=== PATIENT | female | born 1950 | race Two or more races ===

== ENCOUNTER 2022-05-14 10:45 | Inpatient (IN) | payer OTHER ==
[~2022-05-14] VITALS: Ht 160 cm; Wt 70.3 kg
[2022-05-14] MEDS ORDERED: ELIQUIS5 MG PO (14:10)
[2022-05-14] MEDS ORDERED: AMLODIP PO (14:10)
[2022-05-14] MEDS ORDERED: TOPROL XL50 M1 PO (14:11)
[2022-05-14] MEDS ORDERED: GLUMETZA500 MG PO (14:11)
[2022-05-14] MEDS ORDERED: ATORVASTATIN CA10 MG PO (14:11)
[2022-05-17] MEDS ORDERED: KETOTIFEN FUMARA5 ML (09:32)
[2022-05-17] MEDS ORDERED: AMLODIPINE BESYL5 MG (09:32)
[2022-05-17] MEDS ORDERED: PRESERVISION A1 EAC1 (09:33)
[2022-05-17] MEDS ORDERED: IRBESARTAN150 MG (09:34)
== END 2022-05-21 14:43 | disposition home or self-care (01) | DRG 331 ==
LOC: O/R 05-17 06:38 → SURH 05-17 10:45
PROVIDERS: ADMIT Colon & Rectal Surgery; ATTEND Colon & Rectal Surgery
PROC: 0DBP4ZZ Excision of Rectum, Percutaneous Endoscopic Approach (ICD-10-PCS; 2022-05-17)
PROC: 0DJD8ZZ Inspection of Lower Intestinal Tract, Via Natural or Artificial Opening Endoscopic (ICD-10-PCS; 2022-05-17)
PROC: 4A1BXSH Monitoring of Gastrointestinal Vascular Perfusion using Indocyanine Green Dye, External Approach (ICD-10-PCS; 2022-05-17)
PROC: 3E0F7SF Introduction of Other Gas into Respiratory Tract, Via Natural or Artificial Opening (ICD-10-PCS; 2022-05-17)
PROC: 0DTN4ZZ Resection of Sigmoid Colon, Percutaneous Endoscopic Approach (ICD-10-PCS; principal; 2022-05-17 14:45)
DX: K57.20 Diverticulitis of large intestine with perforation and abscess without bleeding (principal); I48.0 Paroxysmal atrial fibrillation; I11.9 Hypertensive heart disease without heart failure

== ENCOUNTER 2024-07-18 05:30 | Day surgery (SDC) | payer OTHER ==
[~2024-07-18 05:30] MED LIST: AMLODIP PO; AMLODIPINE BESYL5 MG; ATORVASTATIN CA10 MG PO; ELIQUIS5 MG PO; GLUMETZA500 MG PO; IRBESARTAN150 MG; KETOTIFEN FUMARA5 ML; PRESERVISION A1 EAC1; TOPROL XL50 M1 PO
[2024-07-18] MEDS ORDERED: DIPHENHYDRAMINE HCL 50 MG/ML VIAL 1ML IV ONE (08:45)
[2024-07-18] MEDS ORDERED: fentaNYL CITRATE 50 MCG/ML AMPUL IV PUSH ONE (08:45)
[2024-07-18] MEDS ORDERED: ONDANSETRON HCL 2 MG/ML VIAL IV ONE (08:45)
[2024-07-18] MEDS ORDERED: MIDAZOLAM HCL 2 MG/2 ML VIAL IV ONE (08:45)
== END 2024-07-18 10:15 | disposition home or self-care (01) ==
LOC: AMB-ENDOS 05:30
PROVIDERS: ATTEND Colon & Rectal Surgery
DX: D12.3 Benign neoplasm of transverse colon (principal); D12.4 Benign neoplasm of descending colon; K63.5 Polyp of colon